=== PATIENT | male | born 1970 | race Caucasian/White ===

== ENCOUNTER 2024-04-14 13:03 | Emergency (ER) | payer SELFPAY ==
[~2024-04-14] VITALS: Ht 160 cm; Wt 63.0 kg
[2024-04-14 13:09] VITALS: O2SAT 98
[2024-04-14] MEDS ORDERED: SULF1TAB48 MT (17:34)
[2024-04-14] MEDS ORDERED: CEPH500C2 MT (17:34)
[2024-04-14] MEDS ORDERED: MUPI1OIN4 TP (17:34)
[2024-04-14] MEDS: BACITRACIN ZINC OINT UDPKT TOP ONE (18:13)
[2024-04-14] MEDS: TETANUS, DIPHTHERIA, PERTUSSIS VAC/PF 0.5ML (>10YR OLD) IM ONE (18:13)
[2024-04-14] MEDS: IBUPROFEN 600MG TABLET PO ONE (18:14)
[2024-04-14 18:54] VITALS: BP 164/100; PULSE 80; RESP 18; TEMP 98.2
== END 2024-04-14 18:56 | disposition home or self-care (01) ==
LOC: ER 13:03
DX: L03.011 Cellulitis of right finger (principal)
CPT/HCPCS: 10060; 90471; 90715; 99283